=== PATIENT | male | born 1960 | race Caucasian/White ===

== ENCOUNTER 2021-02-05 07:38 | Outpatient (CLI) | payer BC, SELFPAY ==
--- NOTE | 2021-02-05 08:00 | ECG_ITS ---
Measurements Intervals Grant Rate: 65 P: 72 HI: 162 QRS: 63 QRSD: 83 T: 57 QT: 365 QTc: 380 Interpretive Statements SINUS RHYTHM DELAYED PRECORDIAL R/S TRANSITION BASELINE ARTIFACT- I, II, III, AVR, AVL, AVF BORDERLINE ECG Electronically Signed On 02-05-2021 7:57:22 CDT by El Schilling D.O.
== END 2021-02-05 07:39 | disposition home or self-care (01) ==
LOC: ANHSURGERY 07:40
PROVIDERS: PCP Family Medicine; Visit Provider Surgery
DX: Z01.818 Encounter for other preprocedural examination (principal); K40.90 Unilateral inguinal hernia, without obstruction or gangrene, not specified as recurrent; E78.2 Mixed hyperlipidemia
CPT/HCPCS: 36415; 86850; 86900; 86901; 93005

== ENCOUNTER → 2021-02-07 05:12 | Outpatient (CLI) | payer BC, SELFPAY ==
[2021-02-07 19:22] LABS: SARS-CoV-2 RNA PCR Negative
== END ==
PROVIDERS: PCP Family Medicine; Visit Provider Surgery
DX: Z01.812 Encounter for preprocedural laboratory examination (principal); Z20.822 Contact with and (suspected) exposure to COVID-19
CPT/HCPCS: C9803; U0003; U0005

== ENCOUNTER 2021-02-10 01:24 | Day surgery (SDC) | payer BC, SELFPAY ==
[2021-01-28 15:30] VITALS: BMI 21.4
[2021-02-10] VITALS (9 sets, daily range): BP systolic 123–154; BP diastolic 71–86; PULSE 58–72; RESP 12–18; TEMP 36.2–36.7; O2SAT 100; BMI 20.8
[2021-02-10] MEDS: LACTATED RINGERS 1,000 ML 30 ML IV CONT ×2 (10:41→14:15)
[2021-02-10] MEDS: KETOROLAC 15 MG/ML VIAL (*BKC) IV PUSH (10:41)
[2021-02-10] MEDS: ACETAMINOPHEN 500 MG TABLET 1000 MG PO (10:42)
--- NOTE | 2021-02-10 11:16 | P.PNAN_ITS ---
Anes - Initial Pre Proc Eval Procedure: Operation Date: 02/10/21 12:00 Proposed Procedures p Laparoscopic Left Inguinal Hernia Repair With Mesh - Francisco Guerrero MD Date/Time: 02/10/21 11:16 Surgeon: Francisco Guerrero MD Pre Op Diagnosis: Left Inguinal Hernia Patient Data Age: 60 Gender: M Height: 5 ft 10 in Weight: 66 kg Last Vital Signs Temp 36.7 C 02/10/21 10:29 Pulse 70 02/10/21 10:29 Resp 16 02/10/21 10:29 BP 133/71 02/10/21 10:29 Pulse Ox 100 02/10/21 10:29 Allergies Allergy/AdvReac Type Severity Reaction Status Date / Time No Known Allergies Allergy Verified 02/10/21 10:22 Home Medications Medication Instructions Recorded Confirmed Type simvastatin 10 mg PO DAILY 01/28/21 02/10/21 History Patient hx anesthesia problems: none Family hx anesthesia problems: none PMFSH Past Medical History Medical History BMI 20.0-20.9, adult Kidney stones Mixed hyperlipidemia Family History Family History Father No problems noted. 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 Questions were solicited and answers provided to the satisfaction of the patient/family/POA.
--- NOTE | 2021-02-10 11:47 | WPDHPUPDATE1 ---
History and Physical Update Update Date/Time: 02/10/21 11:47 History and Physical has been reviewed, including an updated exam of the patient. There are NO changes in the patient's condition. Risks, benefits, and alternatives of a laparoscopic left inguinal hernia repair with mesh have been discussed and questions answered. Patient agrees to proceed with procedure.
--- NOTE | 2021-02-10 14:28 | PM.PROC ---
Procedure Note - Detailed Date of procedure: 02/10/21 Pre-op diagnosis: Left Inguinal Hernia Post-op diagnosis: same Procedure performed: Left laparoscopic inguinal hernia repair (TEP)with mesh Description of procedure: After appropriate marking of the operative site prior to surgery, the patient was taken to the operating room. After induction of adequate general endotracheal anesthesia by [facility] staff, the patient was carefully prepped and draped in a sterile fashion. A timeout was performed confirming the procedure and site of surgery on the LEFT. Following this, local anesthetic was infiltrated into the umbilical area and a vertical incision was made just below the umbilicus. I carefully dissected down to the the anterior rectus sheath on the left and then made a 1 cm vertical slit in the fascia just off the midline. The rectus muscle was retracted to left and then just in front of the posterior rectus sheath, a dissecting balloon was passed onto the pubic bone. After placing slight pressure on the right groin area, this was insufflated with 30 pumps, while watching with the 0 degree laparoscope. It appeared that I was in the proper plane. Following this, the dissecting balloon was removed and replaced by an O-frame conforming balloon which was insufflated with 20 cc of air. Following this, the 0 degree laparoscope was used to carefully place two 5mm Apple trocars, just to the right of midline. One suprapubic and other one assisted between the umbilicus and the pubic bone. We then carefully began dissection and it appeared that the patient had a right she has any a left direct inguinal hernia with a pseudo sac. Tedious dissection then occurred in the preperitoneal space exposing the Bobby's ligament, the cord structures, the muscular tissue anteriorly, and the retroperitoneum. This was then able to be dissected back and we could visualize the posterior peritoneum. We did have a little bit of bleeding along the edge of the Bobby's ligament that was cauterized then also along the cord structures. I placed 2 unfolded 4 x 4 sponges into the area carefully applied pressure and cauterized a few small areas between the peritoneum and the cord structures which led to good hemostasis prior to placing the mesh. I then dissected up to the level of the umbilicus and it was ready for mesh placement. Because the patient had a direct hernia we open the Tacker and I pulled the left-sided pseudo sac mid toward the midline in place 2 tacks through it into the muscle in the midline. This should obliterate the direct space that would of been created by the preperitoneal fat in his hernia. After carefully confirming all sites and that the mesh would cover the direct space, I carefully rolled the large left 3D Max mesh and slid this through the 12 mm trocar at the umbilical level down into the preperitoneal space. This unfurled nicely and sat nicely against the left groin structures. I also placed 2 tacks through the mesh in to Bobby's ligament and 1 into the anterior abdominal wall medial to the epigastric vessels to hold the mesh in place. It nicely covered all spaces and it went back nicely into the preperitoneal space along the anterior-superior iliac spine. I took a picture of it carefully, which showed that the mesh will cover the preperitoneal groin well, and had come down to the posterior border of the peritoneum. Once this was accomplished, I took the patient out of Trendelenburg position, rotated the patient back even, and then observed using a dissector through the higher 5 mm trocar to keep the mesh pushed down against the anterior and posterior abdominal wall retroperitoneally. The peritoneum was then allowed to fall on to the mesh and it held the mesh nicely in place. I carefully removed each of the 5 mm trocars under direct vision and compressed the CO2 gas out of the preperitoneal space, deflating the conforming balloon and removing it. I was happy with the wa
== END 2021-02-10 16:28 | disposition home or self-care (01) ==
PROVIDERS: PCP Family Medicine; Visit Provider Surgery
PROC: (CPT 49650; principal; 2021-02-10 12:00)
DX: K40.90 Unilateral inguinal hernia, without obstruction or gangrene, not specified as recurrent (principal); E78.2 Mixed hyperlipidemia
CPT/HCPCS: 49650; A9270; C1727; C1781; J0330; J1100; J1885; J2250; J2370; J2405; J2704; J2710; J3010; J7120

== ENCOUNTER → 2021-12-30 16:13 | Outpatient (CLI) | payer BC, SELFPAY ==
--- NOTE | ~2021-12-30 | XR_ITS ---
EXAMINATION: XR shoulder RT min 2V INDICATION: Right shoulder pain, impingement syndrome of the right shoulder TECHNIQUE: Four views of the right shoulder are submitted. COMPARISON: None FINDINGS: Normal alignment. No fracture. Glenohumeral and acromioclavicular joint spaces are normal. Soft tissues are unremarkable. IMPRESSION: 1. No acute osseous abnormality. Reviewed, dictated and finalized at location A. 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
--- NOTE | ~2021-12-30 | XR_ITS ---
EXAMINATION: XR chest 2V 12/30/2021 16:51 INDICATION: Cough PROCEDURE: 2 view chest COMPARISON: No prior studies for comparison. FINDINGS: The lungs are clear. The cardiomediastinal silhouette is within normal limits. There are no pleural effusions. There is no pneumothorax suspected. IMPRESSION: 1: NO ACUTE CARDIOPULMONARY DISEASE. Reviewed, dictated and finalized at location B. LOGY TEACHER
== END ==
PROVIDERS: PCP Family Medicine; Visit Provider Family Medicine
DX: R05.9 Cough, unspecified (principal); M75.41 Impingement syndrome of right shoulder
CPT/HCPCS: 71046; 73030

== ENCOUNTER → 2023-01-27 10:05 | Outpatient (CLI) | payer BC, SELFPAY ==
--- NOTE | ~2023-01-27 | XR_ITS ---
Supine and upright views of the abdomen Clinical history: Renal stones Findings: Bowel gas pattern is nonspecific. No evidence for obstruction or free air. There are probab le small left renal stones present, measuring up to approximately 3 mm. Questionable similar small ri ght renal stones. Calcified splenic granulomas noted. Osseous structures are intact. Impression: Probable small bilateral renal stones. Reviewed, dictated and finalized at [facility]. Impression: Probable small bilateral renal stones.
== END ==
PROVIDERS: PCP Family Medicine; Visit Provider Nurse Practitioner Family
DX: Z87.442 Personal history of urinary calculi (principal)
CPT/HCPCS: 74018

== ENCOUNTER 2023-09-27 08:39 | Emergency (ER) | payer BC, SELFPAY ==
--- NOTE | ~2023-09-27 | CT_ITS ---
EXAMINATION: CT abdomen pelvis wo con DATE: 09/27/2023 09:55 INDICATION: Left lower flank pain TECHNIQUE: Computed tomography (CT) of the abdomen and pelvis was performed without intravenous contr ast. The dose-length product was 177.42 mGy-cm. Automated exposure control and iterative reconstruction technique were employed. COMPARISON: None. FINDINGS: Heart size normal. No significant pleural or pericardial effusion. There are calcified gran ulomas of the spleen. There is a 5 mm left mid ureteral stone with associated hydronephrosis. There a re nonobstructing bilateral renal stones. No right ureteral stones. Mild right hydronephrosis. There is a small liver cyst left hepatic lobe near the falciform ligament. Nonobstructive bowel gas pattern . The pancreas, adrenal glands are unremarkable. There are surgical changes of left inguinal hernia r epair. No abnormal pelvic masses or fluid collections. No significant vascular abnormality. Moderate lumbar spondylosis. Mild dextrocurvature of the lumbar spine. IMPRESSION: 1. Left mid ureteral stone measuring 5 mm with associated hydronephrosis. 2: Nonobstructing bilateral nephrolithiasis. 3: Mild right hydronephrosis. Reviewed, dictated and finalized at location B. RVISOR RECORDS CHANGE
[2023-09-27 08:42] VITALS: BP 156/78; PULSE 69; RESP 16; TEMP 36.5; O2SAT 98
[2023-09-27 09:12] LABS: Basophils Percent Auto 0.9 % (0.2-1.2); Eosinophils Absolute Auto 0.1 K/mm3 (0-0.3); Eosinophils Percent Auto 2.4 % (0-4.4); Hematocrit 43.9 % (42.0-52.0); Hemoglobin 14.6 g/dL (14.0-18.0); Immature Granulocyte Absolute 0.02 K/mm3 (0.00-0.031); Immature Granulocyte Percent A 0.4 % (0-0.5); Lymphocytes Percent Auto 32.1 % (18.3-44.2); Mean Corpuscular HGB Conc 33.3 g/dl (32-36); Mean Corpuscular Hemoglobin 30.5 pg (26-34); Mean Corpuscular Volume 91.8 fl (80-100); Mean Platelet Volume 11.4 fl (7.4-10.4); Monocytes Absolute Auto 0.5 K/mm3 (0.1-0.6); Monocytes Percent Auto 9.9 % (2.6-8.5); Neutrophils Absolute Auto 2.5 K/mm3 (1.3-6.7); Neutrophils Percent Auto 54.3 % (45.5-73.1); Platelet Count Result 192 k/mm3 (150-375); Red Blood Count 4.78 M/mm3 (4.6-6.20); Red Cell Distribution Width 13.5 % (11.5-14.5); White Blood Count 4.7 K/mm3 (4.5-10.0)
[2023-09-27 09:18] LABS: Appearance Urine Turbid (Clear); Bacteria Urine None Seen /hpf; Bilirubin Urine Negative (Negative); Color Urine Yellow (Yellow); Glucose Urine UA Negative (Negative); Ketones Urine Negative (Negative); Leukocyte Esterase Ur Negative LEU/UL (Negative); Nitrate Urine Negative (Negative); Protein Urine Negative (Negative); Specific Grav Ur 1.014 (1.001-1.035); Squamous Epithelial Cell Urine None seen /hpf (Few); Urobilinogen Urine 0.2 mg/dL (<2.0); WBC Urine 0-5 /hpf; pH Urine 7.5 (5.0-9.0)
[2023-09-27] MEDS: ONDANSETRON INJ 4 MG/2 ML VIAL IV PUSH (09:19)
[2023-09-27] MEDS: SODIUM CHLORIDE 0.9% IV 1,000 ML 999 ML IV CONT (09:19)
[2023-09-27] MEDS: KETOROLAC 30 MG/ML VIAL (*BKC) IV PUSH (09:20)
[2023-09-27 09:21] LABS: Alanine Aminotransferase 19 U/L (6-50); Albumin Level 4.4 g/dL (3.5-5.1); Alkaline Phosphatase 88 U/L (38-126); Anion Gap 9 mmol/L (8-16); Aspartate Amino Transferase 23 U/L (17-59); Bilirubin,Total 0.6 mg/dL (0.2-1.3); Blood Urea Nitrogen 10 mg/dL (9-20); Calcium 9.1 mg/dL (8.4-10.2); Carbon Dioxide 28 mmol/L (22-30); Chloride 102 mmol/L (98-107); Estimated CRCL calculation 56 ml/min; Estimated Glomerular Filt Rate > 60; Glucose 98 mg/dL (65-110); Potassium 3.6 mmol/L (3.4-5.0); Sodium 139 mmol/L (137-145)
[2023-09-27 09:36] LABS: Add Urine Microscopic? YES
--- NOTE | 2023-09-27 09:40 | ED.GENADULT ---
HPI - General Adult General Chief complaint: Back Pain/Injury Stated complaint: kidney stone Time Seen by Provider: 09/27/23 08:48 History of Present Illness HPI narrative: Patient is a 63-year-old male who presents ER with left-sided flank pain. Sudden onset today. It was very intense associated with nausea and vomiting. He had similar symptoms with previous kidney stone. No radiation into his abdomen. No urinary frequency urgency or dysuria. Denies alleviating factors but is currently comfortable. Related Data Allergies Allergy/AdvReac Type Severity Reaction Status Date / Time No Known Allergies Allergy Verified 09/27/23 09:04 Review of Systems Review of Systems: All systems reviewed & are unremarkable except as noted in HPI and below Constitutional: Constitutional: Denies chills, Denies fatigue and Denies fever(s) ENT: Reports system reviewed and no additional complaints, except as documented Cardiovascular: Cardiovascular: Reports no additional cardiovascular complaints Respiratory: Respiratory: Reports no additional respiratory complaints Gastrointestinal: Gastrointestinal: Reports abdominal pain, Denies diarrhea, Reports nausea and Reports vomiting Genitourinary: Genitourinary: Reports no additional male genitourinary complaints PMFSH Past Medical History Medical History BMI 20.0-20.9, adult Impingement syndrome of right shoulder Kidney stones Mass of skin of shoulder Mixed hyperlipidemia Skin cancer (melanoma) Surgical History Surgical History Left inguinal hernia Family History Family History Father No problems noted. 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 HEAD: Normocephalic, atraumatic. ENT: Mucous membranes moist. CHEST: Clear to auscultation. No respiratory distress. HEART: Regular rate and rhythm. Normal peripheral pulses. ABDOMEN: Soft, nontender, nondistended. EXTREMITIES: Normal range of motion. No edema. SKIN: Warm, dry, no rash. NEURO: Alert and oriented x3. PSYCH: Normal mood and affect. Course Course Emergency Course: Patient resting comfortably. Informed of results. Discharge home with supportive medications. Recommend follow-up with Urology. Vital Signs Vital signs: Vital Signs Temperature 97.7 F 09/27/23 08:42 Pulse Rate 69 09/27/23 08:42 Respiratory Rate 16 09/27/23 08:42 Blood Pressure 156/78 H 09/27/23 08:42 Pulse Oximetry 98 09/27/23 08:42 Temperature 97.7 F 09/27/23 08:42 Pulse Rate 54 L 09/27/23 11:17 Respiratory Rate 16 09/27/23 11:17 Blood Pressure 138/78 09/27/23 11:17 Pulse Oximetry 99 09/27/23 11:17 Medical Decision Making Vital Signs Vital Signs: Vital Signs Temperature 97.7 F 09/27/23 08:42 Pulse Rate 69 09/27/23 08:42 Respiratory Rate 16 09/27/23 08:42 Blood Pressure 156/78 H 09/27/23 08:42 Pulse Oximetry 98 09/27/23 08:42 Temperature 97.7 F 09/27/23 08:42 Pulse Rate
[2023-09-27 11:17] VITALS: BP 138/78; PULSE 54; RESP 16; O2SAT 99
== END 2023-09-27 12:19 | disposition home or self-care (01) ==
PROVIDERS: Emergency Provider Emergency Medicine; PCP Family Medicine
DX: N20.1 Calculus of ureter (principal); Z87.442 Personal history of urinary calculi
CPT/HCPCS: 36415; 74176; 80053; 81001; 85025; 96361; 96374; 96375; 99284; J1885; J2405; J7030

== ENCOUNTER 2023-10-04 17:02 | Emergency (ER) | payer BC, SELFPAY ==
[2023-10-04 17:33] VITALS: BP 149/77; PULSE 83; RESP 17; TEMP 36.6; O2SAT 100
--- NOTE | 2023-10-04 18:30 | PC.NURSE ---
Pt states his pain has decreased and he feels safe to go home.
== END 2023-10-04 18:30 | disposition left against medical advice (07) ==
PROVIDERS: PCP Family Medicine
DX: R10.9 Unspecified abdominal pain (principal)
CPT/HCPCS: 99199

== ENCOUNTER → 2023-12-15 15:26 | Outpatient (CLI) | payer BC, SELFPAY ==
--- NOTE | ~2023-12-15 | XR_ITS ---
EXAMINATION: XR abdomen/kub 1V DATE: 12/15/2023 15:46 INDICATION: Calcium kidney stone. TECHNIQUE: A supine view of the abdomen on 2 radiographs was obtained. COMPARISON: Abdomen radiographs 01/27/2023, CT abdomen and pelvis 09/27/2023 FINDINGS: There are no dilated loops of bowel. The kidneys are partially obscured by bowel. There are stones in the kidneys measuring up to 4 mm on the right. IMPRESSION: 1. Bilateral kidney stones. Reviewed, dictated and finalized at location E. MIN MANAGER IMPRESSION: 1. Bilateral kidney stones.
== END ==
PROVIDERS: PCP Urology; Visit Provider Urology
DX: N20.0 Calculus of kidney (principal)
CPT/HCPCS: 74018

== ENCOUNTER 2024-10-25 13:58 | Outpatient (CLI) | payer BC, SELFPAY ==
--- NOTE | ~2024-10-25 | XR_ITS ---
XR abdomen/kub 1V Ordering provider: Piyush Laws MD History: . Calcium Kidney Stone . Comparison: None. FINDINGS: BOWEL: Nonobstructive bowel gas pattern. ORGANOMEGALY: None. SIGNIFICANT PATHOLOGIC CALCIFICATIONS: Bilateral kidney stones. OTHER: No free air is seen under the diaphragm. IMPRESSION: NO ACUTE ABDOMINAL FINDINGS. Bilateral kidney stones. Reviewed, dictated and finalized at location A. MATIC PILOT MECHANIC
== END 2024-10-25 13:59 | disposition home or self-care (01) ==
LOC: ANHIMG 13:59
PROVIDERS: PCP Family Medicine; Visit Provider Urology
DX: N20.0 Calculus of kidney (principal)
CPT/HCPCS: 74018

== ENCOUNTER 2025-10-09 14:37 | Outpatient (CLI) | payer BC, SELFPAY ==
--- NOTE | ~2025-10-09 | XR_ITS ---
XR abdomen/kub 1V 10/09/2025 14:54 Indication: History of kidney stones Procedure: KUB Comparison: 10/25/2024 Findings: There are multiple bilateral renal stones. There are calcified granulomas of the spleen. Bowel gas pattern nonobstructive. There are pelvic phleboliths. No acute osseous abnormality. Impression: 1: Bilateral nephrolithiasis. Reviewed, dictated and finalized at location I. ER SUPERVISOR ELECTRIC ARC FURNACE Impression: 1: Bilateral nephrolithiasis.
--- OUTSIDE RECORDS SUMMARY | 2025-10-09 16:01 | XMS_ITS | Clinical Summary ---
Author Organization [facility] Address [address] [place] [id number] Care Team Providers Care Application Spec Name Role Phone Unavailable Primary Care Provider Unavailabl e Immunizations Immunization Administration Dates Next Due MODERNA COVID-19 (12+) MRNA, LNP-S, PF, 100 MCG/ 0.5 ML DOSE 01/02/2021,11/29/2020 Social History Tobacco Use Types Packs/Day Years Used Date Smoking Tobacco: Never Assessed Sex and Gender Information Value Date Recorded Sex Assigned at Not on file Legal Sex Male 7:25 PM CDT Gender Identity Not on file Sexual Orientation Not on file Plan of Treatment Health Maintenance Due Date Last Done Comments Colorectal Cancer Screening Colonoscopy (10 Years) 1960 Hepatitis C 1978 DTaP, Tdap and Td Vaccines ( 1 - Tdap) 1979 Pneumococcal Vaccine: 50+ Years (1 of 1 - PCV) 2010 Zoster Vaccines (1 of 2) 2010 COVID-19 Vaccine (3 - 2024-2 6 season) 2025 01/02/2021, 11/29/2020 Influenza Adult (#1) 2025 RSV Immunization or 60+ Years (1 - 1-dose 75+ series) 2035 Hepatitis A Vaccines Aged Out No long er eligible based on patient's age to complete this topic Meningococcal B Vaccine Aged Out No l onger eligible based on patient's age to complete this topic Meningococcal Vaccine Aged Out No calista rachel eligible based on patient's age to complete this topic RSV Immunizations Under 20 Months Aged Out No longer eligible b ased on patient's age to complete this topic
--- OUTSIDE RECORDS SUMMARY | 2025-10-09 16:01 | XMS_ITS | Clinical Summary ---
Author Organization [facility] Address [address] 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
== END 2025-10-09 14:38 | disposition home or self-care (01) ==
PROVIDERS: PCP Family Medicine; Visit Provider Physician Assistant
DX: N20.0 Calculus of kidney (principal)
CPT/HCPCS: 74018